=== PATIENT | male | born 1990 | race African-American/Black ===

== ENCOUNTER 2023-07-29 12:47 | Emergency (ER) | payer MEDICAID ==
[~2023-07-29] VITALS: Ht 170.2 cm; Wt 90.0 kg
[2023-07-29 13:02] VITALS: BP 144/90; PULSE 95; RESP 16; O2SAT 100
[2023-07-29] MEDS ORDERED: ACETAMINOPHEN 325MG TABLET PO ONE (13:45)
[2023-07-29] MEDS ORDERED: FLUORESCEIN SODIUM 1MG/STRIP LEFTEYE ONE (13:45)
[2023-07-29] MEDS ORDERED: TETRACAINE 0.5% OPHTH DROPS 4ML LEFTEYE ONE (13:45)
[2023-07-29] MEDS ORDERED: ERYT1OIN6 OP (16:10)
[2023-07-29] MEDS ORDERED: ERYTHROMYCIN BASE 0.5% OPHTH OINT 3.5GM LEFTEYE ONE (16:15)
[2023-07-29] MEDS ORDERED: ACETAMINOPHEN 160MG/5ML UDC PO ONE (16:45)
[2023-07-29 17:03] VITALS: TEMP 98.7
== END 2023-07-29 17:04 | disposition home or self-care (01) ==
LOC: ER 13:36
DX: S00.83XA Contusion of other part of head, initial encounter (principal); F84.0 Autistic disorder; I10 Essential (primary) hypertension; V49.59XA Passenger injured in collision with other motor vehicles in traffic accident, initial encounter; Y93.89 Activity, other specified; Y92.89 Other specified places as the place of occurrence of the external cause; Y99.8 Other external cause status
CPT/HCPCS: 70486; 99284